=== PATIENT | male | born 1945 | race Caucasian/White ===

== ENCOUNTER 2021-01-22 19:05 | Emergency (ER) | payer MEDICARE, SELFPAY ==
[2021-01-22 19:23] VITALS: BP 184/88; PULSE 56; RESP 16; TEMP 36.7; O2SAT 98; BMI 26.1
--- NOTE | 2021-01-22 19:46 | ED_ITS ---
HPI - Skin/Abscess/Foreign Bdy General Chief complaint: Recheck/Abnormal Lab/Rx Stated complaint: Post surgery inflamation/smells bad x8 Time Seen by Provider: 01/22/21 19:15 Source: patient Mode of arrival: EMS Limitations: no limitations History of Present Illness HPI narrative: 75-year-old male nonsmoker without significant medical history presents with his daughter for evaluation of an abnormal appearance to and incision on his abdomen. [place] and had the excision of a melanoma on his anterior abdomen 8 days ago. Things have gone quite well until the past few days when he had some increased swelling and tenderness at the incision. He states initially the right side of the incision leaked a bit of dark blood and in the following day or 2 he noticed some bruising in his right lower abdomen below the incision, and in the absence of any abdominal pain, dizziness or lightheadedness. Earlier today he had increasing pain and swelling at the left edge his incision and states he had a leakage of some foul- smelling material. Since that happened earlier today the swelling and pain have greatly decreased if not completely resolved. He feels quite well and denies any systemic findings such as dizziness, weakness or lightheadedness. He has had no fever or chills nor nausea or vomiting. Related Data Previous Rx's Medication Instructions Recorded cephalexin 500 mg capsule 500 mg PO Q6H 7 Days #28 cap 01/22/21 Allergies Allergy/AdvReac Type Severity Reaction Status Date / Time No Known Drug Allergies Allergy Verified 01/22/21 19:58 Review of Systems Review of Systems Narrative: GENERAL: Denies chills, fatigue, malaise, fever, sweats. HEENT: Denies sinus pain, ear pain, sore throat, difficulty swallowing, dizziness. RESPIRATORY: Denies dyspnea, cough, wheezing, hemoptysis, sputum. CARDIOVASCULAR: Denies chest pain, palpitations, orthopnea, edema, GASTROINTESTINAL: Denies nausea, vomiting, abdominal pain, diarrhea, constipation, melena. : Denies dysuria, frequency, incontinence, hematuria, urinary retention. MUSCULOSKELETAL: denies weakness, joint pain, or bony pain SKIN: See HPI NEUROLOGIC: Denies weakness, headache, numbness, change in speech, confusion, seizures, incoordination. PSYCHIATRIC: No concerning psychosocial issues. 12 point review of systems is negative except for those stated above Patient History Social History Smoking Status: Never smoker Smoking Status: Never smoker alcohol intake frequency: 0-2 drinks per day Substance Use Type: does not use Exam Narrative Exam Narrative: GENERAL: [75 year old patient appears stated age. Well-developed patient, in mild distress. HEAD: Atraumatic. Normocephalic. EYES: Pupils equal round and reactive. Extraocular motions intact. No scleral icterus. No injection or drainage. ENT: Nose without bleeding, purulent drainage. Throat without erythema, tonsillar hypertrophy or exudate. Airway patent. NECK: Trachea midline. Non tender CARDIOVASCULAR: Regular rate and rhythm without murmurs, gallops, or rubs. RESPIRATORY: Clear to auscultation. Breath sounds equal bilaterally. No wheezes, rales, or rhonchi. GASTROINTESTINAL: Abdomen soft, non-tender, nondistended. EXTREMITIES: No edema or joint tenderness. BACK: Nontender without deformity or crepitance. No flank tenderness. NEURO: AOx3. SKIN: Abdominal incision largely clean, dry and intact. A small area of presumed dehiscence at the left edge has since healed over, there is no active drainage. There is no induration, fluctuance or tenderness. Faint dependant ecchymosis a few centimeters inferior to R lateral edge of incision. No rash or erythema of visible areas Initial Vital Signs Initial Vital Signs: Vital Signs Temperature 98.1 F 01/22/21 19:23 Pulse Rate 56 L 01/22/21 19:23 Respiratory Rate 16 01/22/21 19:23 Blood Pressure 184/88 H 01/22/21 19:23 Pulse Oximetry 98 01/22/21 19:23 Course Orders Ordered: Discontinued Medications Cefazolin Sodium (Cephalexin 250 Mg Prepack) 1 bottle MISC SEEINSTR ONE Stop: 01/22/21 19:47 Last Admin: 01/22/21 19:58 Dose: 500 mg Documented by: SATHYA Vital Signs Vital signs: Vital Signs - 8 hr 01/22/21 19:23 Temperature 98.1 F Pulse Rate 56 L Respiratory Rate 16 Blood Pressure 184/88 H Pulse Oximetry 98 MDM - Skin/Abscess/Foreign Bdy Lab Data Labs: Urine Dip Bedside Urine Glucose Negative Bedside Urine Bilirubin - Negative Bedside Urine Ketone - Negative Urine Specific [place] 1.015 Bedside Urine Occult Blood - Negative Bedside Urine pH 6.0 Bedside Urine Protein - Negative Bedside Urine Urobilinogen - Negative Bedside Urine Nitrite - Negative Bedside Urine Leukocytes - Negative Esterase MDM Narrative Medical decision making narrative: Patient with recent excision of melanoma and drainage of foul-smelling liquid. Patient is very well-appearing and has no systemic findings such as fever chills. There is no active drainage despite palpation and nothing to culture. No residual induration or fluctuance, no surrounding erythema. Underlying abdominal exam exam is soft and nontender. Patient is very well-appearing. Patient description and history sounds like a small amount of purulent drainage earlier warranting the use of antibiotics. Minimal ecchymosis or RLQ most likely resulted from small hematoma at incision that drained into abdominal wall. Extensive return precautions discussed and questions answered to his apparent satisfaction. Discharge Plan Departure Patient Disposition: Home Clinical Impression: Postoperative wound infection Instructions: DI for Wound Infection Activity Restrictions/Additional Instructions: *You have been diagnosed with [ mild skin infection, you have a very reassuring history and phyisical exam] *What to do: *Please continue to take your regular medications as directed. [x ] New medication prescriptions sent to your pharmacy: [ [facility]] [ ] New medication written as a paper prescription [ ] No new medications given *Please follow up with your primary care provider in 2-3 days, call for an ap pointment. Let them know you were seen in the Emergency Department and that we ask that you be seen in follow up. We will electronically transmit a record of today's note if your PCP is in our system *If you do not have a primary care provider please contact the [facility] Resource line at [phone]. They will ask some questions about your medical history and help get you set up with a doctor in the community. *Return to Emergency Department if you should have any new, worsening or concerning symptoms, such as [fever greater than 101 F, shaking chills, worsening pain, persistent vomiting or other bothersome symptoms] Prescriptions: New cephalexin 500 mg capsule 500 mg PO Q6H 7 Days Qty: 28 RF: 0
[2021-01-22] MEDS: cephALEXin 250 MG PREPACK 1 BOTTLE MISC (19:58)
== END 2021-01-22 20:07 | disposition home or self-care (01) ==
PROVIDERS: Emergency Provider Emergency Medicine
DX: T81.49XA Infection following a procedure, other surgical site, initial encounter (principal)
CPT/HCPCS: 81003; 99281; 99283